=== PATIENT | male | born 1975 | race Caucasian/White ===

== ENCOUNTER 2020-07-16 16:11 | Emergency (ER) | payer OTHER ==
[2020-07-17 10:11] LABS: SARS-CoV-2 NAA Detected (Not Detected)
== END 2020-07-16 18:34 | disposition home or self-care (01) ==
LOC: JVIRT 16:11
DX: Z11.52 Encounter for screening for COVID-19 (principal)
CPT/HCPCS: C9803; G2251-GT; U0003; U0005